=== PATIENT | female | born 1970 | race African-American/Black ===

== ENCOUNTER 2017-02-08 06:23 | Day surgery (SDC) | payer BC ==
[~2017-02-08 06:23] MED LIST: ANCEF/STERILE WATER 2 GM/20 ML 2 GM/20 ML SYRINGE IV SCH; ceFAZolin 2 GM in NACL 0.9% 100 ML IV ONE
[2017-02-08] MEDS ORDERED: NACL 0.9% 1000 ML 1,000 ML IV SCH (07:00)
[2017-02-08] MEDS ORDERED: VERSED IV NR (07:00)
[2017-02-08] MEDS ORDERED: PEPCID PO NR (07:00)
[2017-02-08] MEDS ORDERED: NACL BACTERIOSTATIC INFILTRATI ONE (07:40)
[2017-02-08] MEDS ORDERED: DILAUDID IV PRN (07:58)
--- NOTE | 2017-02-08 08:01 | Anesthesia Day of Surgery ---
Anesthesia Day of Surgery - Day of Surgery Patient Examined: Yes Patient H&P Reviewed: Yes Patient is NPO: Yes Beta Blockers: No
--- NOTE | 2017-02-08 08:01 | Anesthesia Consultation ---
Anesthesia Consult and Med Hx Date of service: 02/08/17 - Airway Anesthetic Teeth Evaluation: Good ROM Head & Neck: Adequate Mental/Hyoid Distance: Adequate Mallampati Class: Class II Intubation Access Assessment: Probably Good - Pulmonary Exam CTA: Yes (BLBS CLEAR) - Cardiac Exam Cardiac Exam: RRR - Pre-Operative Health Status ASA Pre-Surgery Classification: ASA2 Proposed Anesthetic Plan: General - Pulmonary Hx Smoking: Yes (CIGARETTES 1 PPD X 32 YRS, QUIT 3 YRS AGO) Hx Sleep Apnea: No - Cardiovascular System Hx Hypertension: No - Central Nervous System Hx Neuromuscular Disorder: No - Gastrointestinal Hx Ulcer: No - Endocrine Hx Renal Disease: No - Hematic Hx Anemia: No - Other Systems Hx Alcohol Use: No (allergy) Hx Cancer: No
[2017-02-08] MEDS ORDERED: DIPRIVAN 10 MG/ML IV ONE ×2 (08:57→09:29)
[2017-02-08] MEDS ORDERED: SUBLIMAZE ONE (08:57)
[2017-02-08] MEDS ORDERED: MARCAINE 0.25% INFILTRATI ONE (09:23)
[2017-02-08] MEDS ORDERED: XYLOCAINE 1%/ EPI 1:100,000 INFILTRATI ONE (09:23)
[2017-02-08] MEDS ORDERED: NACL 0.9% IR ONE (09:23)
[2017-02-08] MEDS ORDERED: XYLOCAINE MPF 2% ONE (09:38)
--- NOTE | 2017-02-08 09:49 | Post Operative Note ---
Pre-op diagnosis: Soft tissue mass X 2 Post-op diagnosis: same Findings: Lipoma midline postr neck 3cm Lipoma left lateral chest eall 2 cm Procedure: Excision of STM x 2 Anesthesia: MAC Surgeon: RE MICHEL Ornamental Rail Installer: NICKIE PENNY Estimated blood loss: minimal Pathology: list (STM X 2) Specimen disposition: to lab Condition: stable Disposition: PACU
--- NOTE | 2017-02-08 09:51 | Discharge Summary ---
Short Stay Discharge Plan Weight Bearing Status: Full Weight Bearing Diet: regular Wound: open to air Follow up with: DR JARVIS [Other] - 7 Days Prescriptions: HYDROcodone/APAP 5-325 [Teachey 5-325 mg TAB] 1 each PO Q6HR PRN #14 tablet PRN Reason: Pain
--- NOTE | 2017-02-08 10:29 | Operative Report ---
PREOPERATIVE DIAGNOSES: Soft tissue mass, midline posterior neck and left lateral chest wall/flank. POSTOPERATIVE DIAGNOSES: Soft tissue mass, both locations clinically appeared to be lipoma. OPERATIVE PROCEDURE: Excision of soft tissue mass in left lateral chest wall. ANESTHESIA: Local 1% Xylocaine with 0.25% Marcaine IV sedation. SURGEON: Noel Davis MD NURSE HEALTHCARE MANAGER: Dr. Alessio Rodriguez. INDICATIONS: A 46-year-old female patient presenting with a symptomatic visible and palpable mass in the posterior midline neck and left lateral chest wall as described below and she is brought in for excision of both. A neck mass is in the midline anterior to the cervical spine not involving the muscle measuring 3 x 3 cm, clinically appears to be lipoma. The lateral chest wall lesion is 1.5 x 1.5 cm, also appears to be lipoma. It is over the 10th rib area. Both specimens sent separately for histopathological examination. DESCRIPTION OF PROCEDURE: The patient was placed in prone position with appropriate protected devices and IV sedation was given. Both areas were prepped and draped. Initially, the neck mass was removed after infiltrating the skin and subcutaneous tissue and the transverse crease incision. This was deepened down and the mass was completely removed and sent for histopathological examination. Hemostasis was quite adequate. Wound was closed in 2 layers with 3-0 Vicryl and 4-0 Monocryl. The lateral chest wall lesion likewise was removed after infiltrating local anesthetic and making a 1.5 cm transverse incision. This incision was also closed in 2 layers and she tolerated both very well and was transferred to postanesthesia anesthesia care unit in satisfactory condition. JOB# [id number] BHARATIN/FIFI
[2017-02-08 12:41] VITALS: BP 103/67
== END 2017-02-08 11:40 | disposition home or self-care (01) ==
LOC: OR 06:23 → EDSEX 09:30 → OR 11:40
PROVIDERS: ATTEND Surgery
DX: M79.89 Other specified soft tissue disorders (principal); F41.9 Anxiety disorder, unspecified; M06.9 Rheumatoid arthritis, unspecified; F32.9 Major depressive disorder, single episode, unspecified; G43.109 Migraine with aura, not intractable, without status migrainosus; Z87.891 Personal history of nicotine dependence; Z98.890 Other specified postprocedural states
CPT/HCPCS: 21552; 21555; 81025; 88307; J0690; J2250; J2704; J3010; J7030; 88304

== ENCOUNTER 2020-05-19 10:38 | Outpatient (CLI) | payer BC ==
--- NOTE | 2020-05-24 10:19 | Mammography Report ---
DIGITAL DIAGNOSTIC MAMMOGRAM WITH CAD, 05/19/2020 INDICATION: The patient reports generalized bilateral breast pain for 2 weeks. TECHNIQUE: Digital bilateral mammographic imaging was performed. This examination was interpreted with the benefit of Computer-aided Detection analysis. COMPARISON: 09/01/2013 FINDINGS: Breast Density: The breasts are extremely dense, which lowers the sensitivity of mammography. There is no evidence of dominant mass, suspicious calcifications or architectural distortion in eithe r breast. IMPRESSION: Follow up recommendation: Routine yearly BI-RADS Category 1: Negative. Clinical correlation is recommended for the patient's generalized bila teral breast pain. A "normal" or negative report should not discourage follow up or biopsy of a clinically significant f inding. A written summary of these findings will be mailed to the patient. The patient will be entered into a mammography reporting system which will generate a reminder letter for the patient's next appointmen t at the appropriate interval. According to the [employer], yearly mammograms are recommended starting at age 40 and continuing as long as a woman is in good health. Breast MRI is recommended for women with an sabiha roximately 20-25% or greater lifetime risk of breast cancer, including women with a strong family his tory of breast or ovarian cancer and women who have been treated for Hodgkin's disease. Signer Name: Nelly Bailey MD Signed: 05/24/2020 10:15 AM Workstation Name: [facility]
== END 2020-05-19 10:39 | disposition home or self-care (01) ==
LOC: SPVWC 10:38
PROVIDERS: ATTEND Obstetrics & Gynecology
DX: R92.2 Inconclusive mammogram (principal); N64.4 Mastodynia
CPT/HCPCS: 77066